=== PATIENT | female | born 1965 | race Caucasian/White ===

== ENCOUNTER 2019-08-16 13:22 | Inpatient (IN) | payer MEDICAID ==
[~2019-08-16] VITALS: Ht 162.6 cm; Wt 63.0 kg
[~2019-08-16 13:22] MED LIST: GABA-529 PO; LEVE500T53 PO; MIRT-92 PO; QUET200T5 PO; VENL-68 PO
[2019-08-16 19:44] VITALS: BP 149/113
[2019-08-16] MEDS: LORazepam 2 MG TABLET PO PRN (20:23)
[2019-08-16] MEDS ORDERED: INFLUENZA VIRUS VACCINE QVS 2019-20 (3YR+)/PF 60 MCG/0.5 ML SYRINGE IM ONE (21:15)
[2019-08-17 07:29] LABS: CHOL/HDL RATIO 2.5 (3.9-5.7); CHOLESTEROL 130 mg/dL (131-200); HDL CHOLESTEROL 51 mg/dL (40-60); LDL CHOL (CALC.) 54 mg/dL (0-130); TRIGLYCERIDES 125 mg/dL (15-150)
[2019-08-17 07:56] LABS: FREE T4 (FREE THYROXINE) 0.63 ng/dL (0.76-1.46)
[2019-08-17 08:30] VITALS: BP 151/109
[2019-08-17] MEDS: ESCITALOPRAM OXALATE 10 MG TABLET PO SCH (10:49)
[2019-08-17] MEDS ORDERED: ChlordiazePOXIDE HCL 25 MG CAPSULE PO PRN (11:45)
[2019-08-17] MEDS ORDERED: LOPERAMIDE HCL 2 MG CAPSULE PO PRN (12:30)
[2019-08-17] MEDS ORDERED: NICOTINE 14 MG/24 HOUR PATCH TD PRN (12:30)
[2019-08-17] MEDS ORDERED: MAGNESIUM HYDROXIDE SUSPENSION 30 ML UDCUP PO PRN (12:30)
[2019-08-17] MEDS ORDERED: ONDANSETRON HCL 4 MG TABLET PO PRN (12:30)
[2019-08-17] MEDS ORDERED: DOCUSATE SODIUM 100 MG CAPSULE PO PRN (12:30)
[2019-08-17] MEDS ORDERED: CloNIDine HCL 0.1 MG TABLET PO PRN (12:30)
[2019-08-17] MEDS ORDERED: ALBUTEROL SULFATE HFA 90 MCG/PUFF 8 GM INHALER IH PRN (12:30)
[2019-08-17] MEDS ORDERED: PETROLATUM,WHITE 28 GM JELLY TP PRN (12:30)
[2019-08-17] MEDS ORDERED: GuaiFENesin/D-METHORPHAN [SUGAR-FREE] 200-20MG/10 ML SYRUP UDCUP PO PRN (12:30)
[2019-08-17] MEDS ORDERED: MAG HYDROX/AL HYDROX/SIMETH ES 30 ML SUSPENSION UDCUP PO PRN (12:30)
[2019-08-17] MEDS: ChlordiazePOXIDE HCL 25 MG CAPSULE PO SCH (14:59)
[2019-08-17 15:18] VITALS: BP 155/95
[2019-08-17 16:00] VITALS: BP 160/103
[2019-08-17] MEDS: LevETIRAcetam 500 MG TABLET PO SCH (16:58)
[2019-08-17] MEDS: IBUPROFEN 400 MG TABLET PO PRN (17:03)
[2019-08-17 18:00] VITALS: BP 165/106
[2019-08-17] MEDS: LORazepam 2 MG TABLET PO PRN (20:32)
[2019-08-17 23:00] VITALS: BP 154/116
[2019-08-18 03:00] VITALS: BP 150/105
[2019-08-18] MEDS: ChlordiazePOXIDE HCL 25 MG CAPSULE PO PRN (06:26)
[2019-08-18] MEDS ORDERED: CloNIDine HCL 0.1 MG TABLET PO PRN (06:30)
[2019-08-18 07:00] VITALS: BP 152/104
[2019-08-18] MEDS: CloNIDine HCL 0.1 MG TABLET PO PRN (07:07)
[2019-08-18 07:41] LABS: BASOPHILS % (AUTO) 0.5 % (0.0-2.0); EOSINOPHILS % (AUTO) 2.5 % (1.0-6.0); HEMATOCRIT 37.3 % (36-46); LYMPHOCYTES # (AUTO) 1.6 K/uL (1.0-4.8); LYMPHOCYTES % (AUTO) 36.7 % (22.0-44.0); MEAN CORPUSCULAR HGB CONC 34.9 G/dL (31.0-37.0); MEAN CORPUSCULAR VOLUME 100 fL (80-100); MONOCYTES # (AUTO) 0.5 K/uL (0.1-1.0); MONOCYTES % (AUTO) 12.5 % (2.0-9.0); NEUTROPHILS # (AUTO) 2.1 K/uL (1.8-7.7); NEUTROPHILS % (AUTO) 47.8 % (40.0-70.0); PLATELET COUNT (AUTO) 173 K/uL (150-450); RED BLOOD CELL COUNT(AUTO) 3.73 MIL/uL (4.00-5.20); RED CELL DISTRIBUTION WIDTH 12.7 % (11.5-14.5)
[2019-08-18 07:44] LABS: HEMOGLOBIN A1C 5.4 % (4.5-6.2)
[2019-08-18 07:53] LABS: ALANINE AMINOTRANSFERASE 52 U/L (12-78); ALBUMIN 3.7 g/dL (3.4-5.0); ALKALINE PHOSPHATASE 131 U/L (46-116); ANION GAP 9 mmol/L (8-16); ASPARTATE AMINOTRANSFERASE 62 U/L (15-37); BILIRUBIN,TOTAL 0.7 mg/dL (0.1-1.0); CALCIUM, TOTAL 8.4 mg/dL (8.8-10.5); CARBON DIOXIDE 26 mmol/L (22-29); CHLORIDE 104 mmol/L (98-107); CHOL/HDL RATIO 3.2 (3.9-5.7); CHOLESTEROL 172 mg/dL (131-200); CREATININE 0.82 mg/dL (0.60-1.30); GLOMERULAR FILTR. RATE CALC > 60 mL/min (>60); GLUCOSE,RANDOM 142 mg/dL (70-110); HDL CHOLESTEROL 54 mg/dL (40-60); LDL CHOL (CALC.) 89 mg/dL (0-130); SODIUM SERUM 139 mmol/L (136-145); THYROID STIMULATING HORMONE 1.86 uIU/mL (0.36-3.74); TOTAL PROTEIN, SERUM 6.8 g/dL (6.4-8.2); TRIGLYCERIDES 143 mg/dL (15-150); UREA NITROGEN, BLOOD 11 mg/dL (7-18)
[2019-08-18 08:32] VITALS: BP 151/96
[2019-08-18] MEDS: ESCITALOPRAM OXALATE 10 MG TABLET PO SCH (08:52)
[2019-08-18] MEDS: LevETIRAcetam 500 MG TABLET PO SCH ×2 (08:53→16:51)
[2019-08-18] MEDS: LORazepam 2 MG TABLET PO PRN ×2 (11:51→18:15)
[2019-08-18 13:17] VITALS: BP 131/62
[2019-08-18] MEDS: ChlordiazePOXIDE HCL 25 MG CAPSULE PO SCH ×3 (13:45→20:34)
[2019-08-18 14:59] VITALS: BP 126/98
[2019-08-18 17:09] VITALS: BP 131/90
[2019-08-19 01:41] VITALS: BP 158/91
[2019-08-19] MEDS: LORazepam 2 MG TABLET PO PRN (01:43)
[2019-08-19] MEDS: CloNIDine HCL 0.1 MG TABLET PO PRN (01:43)
[2019-08-19 05:50] VITALS: BP 133/91
[2019-08-19] MEDS: ChlordiazePOXIDE HCL 25 MG CAPSULE PO PRN ×2 (07:17→11:53)
[2019-08-19 08:12] VITALS: BP 137/87
[2019-08-19] MEDS: ESCITALOPRAM OXALATE 10 MG TABLET PO SCH (09:19)
[2019-08-19] MEDS: LevETIRAcetam 500 MG TABLET PO SCH ×2 (09:19→16:14)
[2019-08-19] MEDS: ChlordiazePOXIDE HCL 25 MG CAPSULE PO SCH ×5 (09:19→20:25)
[2019-08-19] MEDS: ACETAMINOPHEN 325 MG TABLET PO PRN (17:38)
[2019-08-19 17:39] VITALS: BP 138/81
[2019-08-19 18:54] VITALS: BP 138/91
[2019-08-19 20:26] VITALS: BP 131/91
[2019-08-20] MEDS: CloNIDine HCL 0.1 MG TABLET PO PRN (00:25)
[2019-08-20] MEDS: ZOLPIDEM TARTRATE 10 MG TABLET PO PRN ×2 (00:25→21:09)
[2019-08-20 01:44] VITALS: BP 150/84
[2019-08-20] MEDS: ChlordiazePOXIDE HCL 10 MG CAPSULE PO SCH ×4 (08:29→20:07)
[2019-08-20] MEDS: ESCITALOPRAM OXALATE 10 MG TABLET PO SCH (08:29)
[2019-08-20] MEDS: LevETIRAcetam 500 MG TABLET PO SCH ×2 (08:29→16:43)
[2019-08-20] MEDS: ChlordiazePOXIDE HCL 10 MG CAPSULE PO PRN ×2 (08:31→12:29)
[2019-08-20 09:52] VITALS: BP 137/99
[2019-08-20 17:46] VITALS: BP 150/89
[2019-08-20 17:55] VITALS: BP 134/91
[2019-08-21] MEDS: LevETIRAcetam 500 MG TABLET PO SCH ×2 (08:01→15:59)
[2019-08-21] MEDS: ESCITALOPRAM OXALATE 10 MG TABLET PO SCH (08:01)
[2019-08-21 08:30] VITALS: BP 134/92
[2019-08-21] MEDS: ChlordiazePOXIDE HCL 10 MG CAPSULE PO PRN ×2 (11:40→15:59)
[2019-08-21 13:02] VITALS: BP 132/86
[2019-08-21] MEDS: ACETAMINOPHEN 325 MG TABLET PO PRN (13:03)
[2019-08-21] MEDS: DENTURE ADHESIVE 68 GM CREAM DT PRN (15:58)
[2019-08-21 19:11] VITALS: BP 139/95
[2019-08-21 20:11] VITALS: BP 139/95
[2019-08-21] MEDS: ZOLPIDEM TARTRATE 10 MG TABLET PO PRN (20:21)
[2019-08-22] MEDS: ESCITALOPRAM OXALATE 20 MG TABLET PO SCH (08:53)
[2019-08-22] MEDS: LevETIRAcetam 500 MG TABLET PO SCH ×2 (08:53→16:27)
[2019-08-22 10:13] VITALS: BP 147/93
[2019-08-22 18:10] VITALS: BP 146/92
[2019-08-22] MEDS: ACETAMINOPHEN 325 MG TABLET PO PRN (18:10)
[2019-08-23] MEDS: HALOPERIDOL 5 MG TABLET PO PRN ×2 (08:02→12:05)
[2019-08-23] MEDS: ESCITALOPRAM OXALATE 20 MG TABLET PO SCH (08:02)
[2019-08-23] MEDS: LevETIRAcetam 500 MG TABLET PO SCH ×2 (08:02→16:18)
[2019-08-23 09:56] VITALS: BP 147/97
[2019-08-23 17:56] VITALS: BP 145/96
[2019-08-24] MEDS: HALOPERIDOL 5 MG TABLET PO PRN (06:22)
[2019-08-24] MEDS: ESCITALOPRAM OXALATE 20 MG TABLET PO SCH (08:41)
[2019-08-24] MEDS: LevETIRAcetam 500 MG TABLET PO SCH ×2 (08:41→16:08)
[2019-08-24 09:26] VITALS: BP 150/88
[2019-08-24] MEDS ORDERED: LORazepam 2 MG TABLET PO ONE (12:30)
[2019-08-24] MEDS: DENTURE ADHESIVE 68 GM CREAM DT PRN (15:49)
[2019-08-24] MEDS: ACETAMINOPHEN 325 MG TABLET PO PRN (16:08)
[2019-08-24] MEDS: ZOLPIDEM TARTRATE 10 MG TABLET PO PRN (23:50)
[2019-08-25] MEDS: ESCITALOPRAM OXALATE 20 MG TABLET PO SCH (08:32)
[2019-08-25] MEDS: LevETIRAcetam 500 MG TABLET PO SCH ×2 (08:32→16:46)
[2019-08-25 09:51] VITALS: BP 134/89
[2019-08-25] MEDS: LORazepam 2 MG TABLET PO PRN ×2 (12:02→17:26)
[2019-08-25 17:24] VITALS: BP 138/96
[2019-08-25] MEDS: HALOPERIDOL 5 MG TABLET PO PRN (17:26)
[2019-08-26] MEDS: CloNIDine HCL 0.1 MG TABLET PO PRN (04:48)
[2019-08-26 04:50] VITALS: BP 154/110
[2019-08-26] MEDS: ESCITALOPRAM OXALATE 20 MG TABLET PO SCH (08:50)
[2019-08-26] MEDS: LevETIRAcetam 500 MG TABLET PO SCH ×2 (08:50→16:56)
[2019-08-26 09:48] VITALS: BP 99/68
[2019-08-26] MEDS: LORazepam 2 MG TABLET PO PRN (13:21)
[2019-08-26 16:46] VITALS: BP 113/77
[2019-08-26] MEDS: DENTURE ADHESIVE 68 GM CREAM DT PRN (17:50)
[2019-08-27 05:48] VITALS: BP 132/84
[2019-08-27] MEDS: LevETIRAcetam 500 MG TABLET PO SCH ×2 (07:51→16:08)
[2019-08-27] MEDS: ESCITALOPRAM OXALATE 20 MG TABLET PO SCH (07:51)
[2019-08-27] MEDS: LORazepam 2 MG TABLET PO PRN ×2 (07:51→12:00)
[2019-08-27 09:25] VITALS: BP 125/88
[2019-08-27 17:01] VITALS: BP 134/88
[2019-08-28 03:22] VITALS: BP 159/110
[2019-08-28] MEDS: LORazepam 2 MG TABLET PO PRN ×2 (03:24→14:31)
[2019-08-28] MEDS: CloNIDine HCL 0.1 MG TABLET PO PRN (03:24)
[2019-08-28 04:24] VITALS: BP 112/68
[2019-08-28] MEDS: LevETIRAcetam 500 MG TABLET PO SCH ×2 (08:23→16:31)
[2019-08-28] MEDS: ESCITALOPRAM OXALATE 20 MG TABLET PO SCH (08:23)
[2019-08-28 08:36] VITALS: BP 118/77
[2019-08-28 17:13] VITALS: BP 124/92
[2019-08-28] MEDS: ZOLPIDEM TARTRATE 10 MG TABLET PO PRN (23:37)
[2019-08-29 06:30] VITALS: BP 157/105
[2019-08-29] MEDS: LORazepam 2 MG TABLET PO PRN ×2 (06:33→16:28)
[2019-08-29] MEDS: CloNIDine HCL 0.1 MG TABLET PO PRN (06:33)
[2019-08-29] MEDS: LevETIRAcetam 500 MG TABLET PO SCH ×2 (08:52→16:26)
[2019-08-29] MEDS: ESCITALOPRAM OXALATE 20 MG TABLET PO SCH (08:52)
[2019-08-29 09:10] VITALS: BP 110/90
[2019-08-29] MEDS: DENTURE ADHESIVE 68 GM CREAM DT PRN (16:26)
[2019-08-29 17:24] VITALS: BP 125/86
[2019-08-30] MEDS: ZOLPIDEM TARTRATE 10 MG TABLET PO PRN (03:02)
[2019-08-30 03:19] VITALS: BP 146/102
[2019-08-30 08:30] VITALS: BP 131/80
[2019-08-30] MEDS: LevETIRAcetam 500 MG TABLET PO SCH ×2 (09:40→16:03)
[2019-08-30] MEDS: LORazepam 2 MG TABLET PO PRN (09:40)
[2019-08-30] MEDS: ESCITALOPRAM OXALATE 20 MG TABLET PO SCH (09:40)
[2019-08-30 16:01] VITALS: BP 135/75
[2019-08-30] MEDS: IBUPROFEN 400 MG TABLET PO PRN (16:03)
[2019-08-30 16:34] VITALS: BP 130/91
[2019-08-31] MEDS: ZOLPIDEM TARTRATE 10 MG TABLET PO PRN (02:37)
[2019-08-31] MEDS: CloNIDine HCL 0.1 MG TABLET PO PRN (02:41)
[2019-08-31 02:43] VITALS: BP 153/119
[2019-08-31 03:41] VITALS: BP 106/64
[2019-08-31] MEDS: MULTIVITAMINS WITH MINERALS, THERAPEUTIC TABLET PO SCH (08:06)
[2019-08-31] MEDS: LORazepam 2 MG TABLET PO PRN ×2 (08:06→16:21)
[2019-08-31] MEDS: ESCITALOPRAM OXALATE 20 MG TABLET PO SCH (08:06)
[2019-08-31] MEDS: LevETIRAcetam 500 MG TABLET PO SCH ×2 (08:06→16:06)
[2019-08-31 08:30] VITALS: BP 107/80
[2019-08-31 16:30] VITALS: BP 111/76
[2019-09-01] MEDS: LORazepam 2 MG TABLET PO PRN (08:13)
[2019-09-01] MEDS: MULTIVITAMINS WITH MINERALS, THERAPEUTIC TABLET PO SCH (08:13)
[2019-09-01] MEDS: LevETIRAcetam 500 MG TABLET PO SCH (08:13)
[2019-09-01] MEDS: ESCITALOPRAM OXALATE 20 MG TABLET PO SCH (08:13)
[2019-09-01 08:40] VITALS: BP 137/93
[2019-09-01] MEDS ORDERED: MULT-1239 PO (09:13)
[2019-09-01] MEDS ORDERED: ESCI20TA PO (09:13)
== END 2019-09-01 10:25 | disposition home or self-care (01) | DRG 885 ==
LOC: 3EI 18:25
PROVIDERS: ADMIT Psychiatry & Neurology Child & Adolescent Psychiatry; ATTEND Psychiatry & Neurology Child & Adolescent Psychiatry
DX: F33.2 Major depressive disorder, recurrent severe without psychotic features (principal); F10.239 Alcohol dependence with withdrawal, unspecified; Z23 Encounter for immunization; D64.9 Anemia, unspecified; F17.200 Nicotine dependence, unspecified, uncomplicated; G40.909 Epilepsy, unspecified, not intractable, without status epilepticus; I10 Essential (primary) hypertension; J44.9 Chronic obstructive pulmonary disease, unspecified; S61.512A Laceration without foreign body of left wrist, initial encounter; Z90.710 Acquired absence of both cervix and uterus; F41.9 Anxiety disorder, unspecified; X58.XXXA Exposure to other specified factors, initial encounter; Y93.89 Activity, other specified; Y92.89 Other specified places as the place of occurrence of the external cause; Y99.8 Other external cause status
CPT/HCPCS: 83036; 84436; 84439; 84443; 87081; 90686; 93005; G0480; Q0162